=== PATIENT | female | born 1950 | race Caucasian/White ===

== ENCOUNTER → 2016-11-13 | Outpatient (CLI) | payer OTHER ==
[~2016-11-13] MED LIST: ALBU1AER9 INH; AMLO-114 PO; ASPCH81 PO; ATOR-26 PO; BCTROWC EXT; CPRDOTS OT; DOCU100C31 PO; FERR1TAB23 PO; FLUT0.0529 NAE; FRS/40 PO; GLCSR500 PO; INSU1INJ SC; LISI20TA3 PO; LYR50 PO; METO1TAB69 PO; OMEP40CA PO; OXYC-57 PO; OXYC-643 PO; POLY335025 PO; TIOTCAP INH
[2016-11-13 12:43] LABS: BLOOD UREA NITROGEN 19 mg/dl (7-18); BUN/CREATININE RATIO 11.2 (10-20); CALCIUM 8.6 mg/dl (8.5-10.1); CARBON DIOXIDE 24 mmol/L (21-32); CHLORIDE 98 mmol/L (98-107); GLUCOSE 237 mg/dl (70-99); SODIUM 136 mmol/L (136-145)
[2016-11-13 13:46] LABS: ESTIMATED AVERAGE GLUCOSE 128 mg/dl; HA1C FLAG Normal (Normal)
== END | disposition home or self-care (01) ==
LOC: C.LABBFT 07:59
PROVIDERS: ATTEND Internal Medicine Cardiovascular Disease
DX: E11.9 Type 2 diabetes mellitus without complications (principal); I10 Essential (primary) hypertension; I50.32 Chronic diastolic (congestive) heart failure; I25.10 Atherosclerotic heart disease of native coronary artery without angina pectoris

== ENCOUNTER → 2016-11-19 | Outpatient (CLI) | payer OTHER ==
[2016-11-19 09:59] LABS: BLOOD UREA NITROGEN 22 mg/dl (7-18); BUN/CREATININE RATIO 14.8 (10-20); CALCIUM 8.6 mg/dl (8.5-10.1); CARBON DIOXIDE 25 mmol/L (21-32); CHLORIDE 100 mmol/L (98-107); GLUCOSE 322 mg/dl (70-99); POTASSIUM 4.4 mmol/L (3.5-5.1); SODIUM 137 mmol/L (136-145)
== END | disposition home or self-care (01) ==
LOC: C.LAB1850 08:38
PROVIDERS: ATTEND Internal Medicine Cardiovascular Disease
DX: I50.32 Chronic diastolic (congestive) heart failure (principal); I25.10 Atherosclerotic heart disease of native coronary artery without angina pectoris

== ENCOUNTER → 2017-01-23 | Outpatient (CLI) | payer OTHER ==
[~2017-01-23] MED LIST changes: +METO100T44 PO; -METO1TAB69 PO
[2017-01-23 13:19] LABS: BLOOD UREA NITROGEN 30 mg/dl (7-18); BUN/CREATININE RATIO 16.8 (10-20); CARBON DIOXIDE 27 mmol/L (21-32); CHLORIDE 94 mmol/L (98-107); GLUCOSE 253 mg/dl (70-99); POTASSIUM 4.3 mmol/L (3.5-5.1); SODIUM 133 mmol/L (136-145)
[2017-01-23 13:55] LABS: CALCIUM 9.6 mg/dl (8.5-10.1)
== END | disposition home or self-care (01) ==
LOC: C.LABBFT 08:29
PROVIDERS: ATTEND Physician Assistant
DX: I50.32 Chronic diastolic (congestive) heart failure (principal)

== ENCOUNTER → 2017-03-14 | Outpatient (CLI) | payer OTHER ==
[2017-03-14 12:31] LABS: MEAN CELL VOLUME 91.8 fL (80-100); MEAN CORPUSCULAR HEMOGLOBIN 27.5 pg (25-34); MEAN PLATELET VOLUME 10.9 fL (7.4-10.4); PLATELET COUNT 224 K/uL (130-400); RED BLOOD COUNT 3.16 M/uL (4.2-5.4); WHITE BLOOD COUNT 8.94 K/uL (4.8-10.8)
[2017-03-14 12:52] LABS: BLOOD UREA NITROGEN 27 mg/dl (7-18); BUN/CREATININE RATIO 15.8 (10-20); CARBON DIOXIDE 27 mmol/L (21-32); CHLORIDE 101 mmol/L (98-107); CHOLESTEROL 67 mg/dl (0-200); GLUCOSE 203 mg/dl (70-99); POTASSIUM 4.7 mmol/L (3.5-5.1); SODIUM 137 mmol/L (136-145)
[2017-03-14 12:56] LABS: CHOLESTEROL/HDL RATIO 2.8; HDL CHOLESTEROL 24 mg/dl; LDL CHOLESTEROL CALCULATED 27 mg/dl; PHOSPHORUS 3.4 mg/dl (2.5-4.9); TRIGLYCERIDES 78 mg/dl (0-150); VERY LOW DENSITY LIPOPROT CALC 16 mg/dl
[2017-03-14 13:02] LABS: URINE PROTIEN/CREAT RATIO 0.2 (0-0.2); URINE TOTAL PROTEIN 10.2 mg/dl (0-11.9)
[2017-03-14 13:03] LABS: URINE APPEARANCE CLEAR (CLEAR); URINE BILIRUBIN NEG (NEG); URINE COLOR YELLOW; URINE EPITHELIAL CELL AUTO >30 /lpf (0-5); URINE NITRITE NEG (NEG); UROBILINOGEN NEG (NEG)
[2017-03-14 13:05] LABS: CALCIUM 8.5 mg/dl (8.5-10.1)
[2017-03-14 13:06] LABS: MANUAL MICROSCOPIC REQUIRED? NO; REVIEW REQ? NO
[2017-03-14 13:10] LABS: ESTIMATED AVERAGE GLUCOSE 120 mg/dl; HA1C FLAG Normal (Normal)
== END | disposition home or self-care (01) ==
LOC: C.LABBFT 09:14
PROVIDERS: ATTEND Internal Medicine Nephrology
DX: I10 Essential (primary) hypertension (principal); N18.3 Chronic kidney disease, stage 3 (moderate); N25.81 Secondary hyperparathyroidism of renal origin; R60.9 Edema, unspecified; E55.9 Vitamin D deficiency, unspecified; E11.9 Type 2 diabetes mellitus without complications; I65.29 Occlusion and stenosis of unspecified carotid artery; L03.90 Cellulitis, unspecified; I50.32 Chronic diastolic (congestive) heart failure; I70.299 Other atherosclerosis of native arteries of extremities, unspecified extremity; R93.8 Abnormal findings on diagnostic imaging of other specified body structures; G56.02 Carpal tunnel syndrome, left upper limb; I25.10 Atherosclerotic heart disease of native coronary artery without angina pectoris

== ENCOUNTER → 2017-03-17 | Outpatient (CLI) | payer OTHER ==
--- NOTE | 2017-03-17 12:57 | DIAGNOSTIC IMAGING REPORT ---
CAROTID ARTERY ULTRASOUND CLINICAL HISTORY: Carotid stenosis. Status post right carotid endarterectomy. COMPARISON STUDY: Carotid ultrasound March 18, 2014 and CTA of the neck December 14, 2015. TECHNIQUE: Real-time, grayscale, and color Doppler sonography of the carotid and vertebral arteries was performed. Images were viewed in the transverse and longitudinal planes. FINDINGS: There is extensive atherosclerotic plaque present throughout major vasculature of the neck. Velocity measurements are listed below. COMMON CAROTID PEAK SYSTOLIC VELOCITY (CM/S): RIGHT 60 LEFT 97 ICA PEAK SYSTOLIC VELOCITY (CM/S): RIGHT 91 LEFT 238 The systolic ratio between the left internal to common carotid artery is elevated at 2.4. Retrograde flow is noted within the right vertebral artery.The external carotid arteries are patent however elevated velocities within the left external carotid artery noted with a peak systolic velocity of 319 cm/s. Blood pressure could not be obtained in this patient. IMPRESSION: 1. No significant change in findings suggestive of greater than 70% stenosis of the proximal left internal carotid artery. 2. No evidence of recurrent stenosis status post right carotid endarterectomy. 3. Reversal of flow within the right vertebral artery which suggests a right subclavian stenosis. Electronically signed by: Fidencio Ferrer M.D. 03/17/2017 12:55 PM Dictated Date/Time: 03/17/2017 12:49 PM
--- NOTE | 2017-03-21 12:24 | CODING QUERY MEDICAL NECESSITY ---
SUPPORTING DIAGNOSIS NEEDED Rebel YOUNG, A supporting diagnosis is required for the test/procedure performed on this patient in order for us to be reimbursed by the patient's insurance. Please provide a supporting diagnosis for the following test/procedure listed below next to the test name along with your signature. *If there is no additional diagnosis for this patient that would support the following test/procedure please document that below next to the test/procedure. Test(s)/Procedure(s) that require a supporting diagnosis: * ([id number]) (CAROTID DOP) DUPLEX NECK ARTER DIAGNOSIS: DATE OF SERVICE: 03/17/17 Provider Signature: Date: Thank you Herman [facility] Information [facility] Once completed, please kindly fax back to [phone] For questions please call [phone]
== END | disposition home or self-care (01) ==
LOC: C.ULTR 10:22
PROVIDERS: ATTEND Surgery
DX: I65.29 Occlusion and stenosis of unspecified carotid artery (principal)

== ENCOUNTER → 2017-04-10 | Outpatient (CLI) | payer OTHER ==
[~2017-04-10] MED LIST changes: -METO100T44 PO; +METO1TAB69 PO
[2017-04-10 13:19] LABS: BASO % 0.5 %; BASO ABS # 0.05 K/uL (0-0.2); COMPLETE YES; EOS % 2.5 %; HEMATOCRIT 33.7 % (37-47); IG% 0.4 %; LYMPH % 8.2 %; LYMPH ABS # 0.88 K/uL (1.2-3.4); MEAN CELL VOLUME 87.3 fL (80-100); MEAN CORPUSCULAR HEMOGLOBIN 26.4 pg (25-34); MEAN CORPUSCULAR HGB CONC 30.3 g/dl (32-36); MEAN PLATELET VOLUME 10.6 fL (7.4-10.4); MONO % 6.7 %; NEUT % 81.7 %; PLATELET COUNT 227 K/uL (130-400); RED BLOOD COUNT 3.86 M/uL (4.2-5.4); WHITE BLOOD COUNT 10.75 K/uL (4.8-10.8)
[2017-04-10 13:49] LABS: FERRITIN 25.5 ng/ml (8.0-388.0)
--- NOTE | 2017-04-17 09:48 | CODING QUERY MEDICAL NECESSITY ---
CQSUPPORTING DIAGNOSIS NEEDED A supporting diagnosis is required for the test/procedure performed on this patient in order for us to be reimbursed by the patient's insurance. Please provide a supporting diagnosis for the following test/procedure listed below next to the test name along with your signature. *If there is no additional diagnosis for this patient that would support the following test/procedure please document that below next to the test/procedure. Test(s)/Procedure(s) that require a supporting diagnosis: DOS 04/10/17 FOLIC ACID TEST VITAMIN B12 TEST Provider Signature: Date: Thank you Mabel Haynes [facility] Information Management Once completed, please kindly fax back to [phone] For questions please call [phone]
== END | disposition home or self-care (01) ==
LOC: C.LAB1850 11:42
PROVIDERS: ATTEND Internal Medicine
DX: D64.9 Anemia, unspecified (principal); R80.9 Proteinuria, unspecified; N18.3 Chronic kidney disease, stage 3 (moderate); E55.9 Vitamin D deficiency, unspecified; R60.9 Edema, unspecified; N25.81 Secondary hyperparathyroidism of renal origin; D50.9 Iron deficiency anemia, unspecified